=== PATIENT | male | born 1965 ===

== ENCOUNTER 2020-07-17 12:58 | Emergency (ER) | payer SELFPAY ==
[~2020-07-17] VITALS: Ht 177.8 cm; Wt 82.6 kg
[2020-07-17 13:07] VITALS: BP 124/66
--- NOTE | 2020-07-17 15:48 | NUR ---
NO ANSWER AT 1550
--- NOTE | 2020-07-17 16:14 | NUR ---
NO ANSWER AT 1600, 1615
== END 2020-07-17 16:16 | disposition left against medical advice (07) ==
LOC: ED 16:05
DX: R61 Generalized hyperhidrosis (principal); R05 Cough; R06.02 Shortness of breath; I48.91 Unspecified atrial fibrillation
CPT/HCPCS: 93005; 99283